=== PATIENT | female | born 1995 ===

== ENCOUNTER 2024-08-28 05:27 | Day surgery (SDC) | payer OTHER ==
[2024-08-22 10:07] LABS: PH,URINE 5.5 (5.0-8.0); URINE APPEARANCE Clear; URINE BILIRRUBIN Negative (NEGATIVE); URINE BLOOD Negative; URINE COLOR Dark Yellow; URINE GLUCOSE Negative (NEGATIVE); URINE KETONE Negative (NEGATIVE); URINE LEUKOCYTE Negative; URINE NITRATE Negative; URINE PROTEIN Negative (NEGATIVE); URINE UROBILINOGEN 0.2 E.U./dl
[2024-08-22 10:09] LABS: URINE BACTERIA 1394.7 uL (0.0-1933); URINE WBC 3.7 uL (0.0-23.2)
[2024-08-22 10:10] LABS: HEMATOCRIT 31.7 % (36.0-45.00); HEMOGLOBIN 10.6 g/dL (12.0-15.00); MEAN CELL VOLUME 82.4 fL (80.00-100.00); MEAN CORPUSCULAR HEMOGLOBIN 27.5 pg (27.00-32.0); MEAN CORPUSCULAR HGB CONC 33.3 g/dl (32.0-36.0); PLATELET COUNT 251 K/uL (150-450); RED BLOOD COUNT 3.84 M/uL (4.00-6.00); RED CELL DISTRIBUTION WIDTH 13.3 % (11.5-14.5)
[2024-08-22 10:16] LABS: URINE RBC 0.9 uL (0.0-20.8)
[2024-08-22 11:13] LABS: CALCIUM 9.3 mg/dL (8.5-10.1); CREATININE SERUM 0.62 mg/dL (0.55-1.02); GFR 112.27; POTASSIUM 4.27 mEq/L (3.5-5.1)
[2024-08-22 11:14] LABS: INR 1.15; PARTIAL THROMBOPLASTIN TIME 30.8 SECONDS (22.0-34.0); PROTHROMBIN TIME 12.4 SECONDS (9.0-11.5)
[~2024-08-28 05:27] MED LIST: ABILIFY5 MG; DEXTROAMPHETAMINE 15 MG; LEXAPRO20 MG
[2024-08-28] MEDS ORDERED: DEXAMETHASONE SODIUM PHOSPHATE 4 MG/ML VIAL IV SCH (08:30)
[2024-08-28] MEDS ORDERED: OXYMETAZOLINE HCL 15 ML NASAL DROPS NASAL SCH (08:30)
== END 2024-08-28 13:30 | disposition home or self-care (01) ==
LOC: CIR.AMB 05:27
PROVIDERS: ATTEND Otolaryngology
DX: J03.91 Acute recurrent tonsillitis, unspecified (principal); Z91.09 Other allergy status, other than to drugs and biological substances; F90.9 Attention-deficit hyperactivity disorder, unspecified type; J32.9 Chronic sinusitis, unspecified; F31.81 Bipolar II disorder